=== PATIENT | male | born 1990 | race Caucasian/White ===

== ENCOUNTER 2016-06-16 21:43 | Emergency (ER) | payer MEDICAID ==
[~2016-06-16] VITALS: Ht 165.1 cm; Wt 88.0 kg
[2016-06-16 21:49] VITALS: BP 161/85
--- NOTE | 2016-06-16 21:56 | NUR ---
PATIENT AMBULATED TO ER BED 05
[2016-06-16] MEDS ORDERED: IBUPROFEN 800 MG TAB PO ONE (22:30)
[2016-06-16] MEDS ORDERED: SULFAMETH/TRIMETH DS 800/160MG 1 TAB PO ONE (22:30)
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
[2016-06-16 23:09] VITALS: BP 140/79
--- NOTE | 2016-06-16 23:09 | NUR ---
Patient discharged with v/s stable. Written and verbal after care instructions given and explained. Patient alert, oriented and verbalized understanding of instructions. Ambulatory with steady gait. All questions addressed prior to discharge. ID band removed. Patient advised to follow up with PMD. Rx of motrin and bactrim given. Patient educated on indication of medication including possible reaction and side effects. Opportunity to ask questions provided and answered.
== END 2016-06-16 23:09 | disposition home or self-care (01) ==
LOC: MED 21:43
DX: S93.601A Unspecified sprain of right foot, initial encounter (principal); L03.115 Cellulitis of right lower limb; R03.0 Elevated blood-pressure reading, without diagnosis of hypertension; W31.9XXA Contact with unspecified machinery, initial encounter; Y93.89 Activity, other specified; Y92.89 Other specified places as the place of occurrence of the external cause; Y99.8 Other external cause status

== ENCOUNTER 2021-04-16 23:47 | Emergency (ER) | payer SELFPAY ==
[~2021-04-16] VITALS: Ht 167.6 cm; Wt 83.9 kg
[2021-04-16 23:54] VITALS: BP 163/100
--- NOTE | 2021-04-17 | NUR ---
TO LOBBY A/W BED AMBULATORY
--- NOTE | 2021-04-17 01:08 | NUR ---
PT AMBULATED TO BED 10
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
[2021-04-17] MEDS ORDERED: IBUP-2213 PO (01:32)
--- NOTE | 2021-04-17 01:40 | NUR ---
Patient discharged with v/s stable. Written and verbal after care instructions given and explained. Patient alert, oriented and verbalized understanding of instructions. Ambulatory with steady gait. All questions addressed prior to discharge. ID band removed. Patient advised to follow up with PMD. Rx of IBUPROFEN given.Opportunity to ask questions provided and answered.
[2021-04-17 01:45] VITALS: BP 152/83
--- NOTE | 2021-04-17 03:19 | NUR ---
The patient's care was reviewed and supervised by MILY BROWNE RN.
== END 2021-04-17 01:40 | disposition home or self-care (01) ==
LOC: MED 23:47
DX: S61.212A Laceration without foreign body of right middle finger without damage to nail, initial encounter (principal); W26.0XXA Contact with knife, initial encounter; Y93.89 Activity, other specified; Y92.89 Other specified places as the place of occurrence of the external cause; Y99.8 Other external cause status
CPT/HCPCS: 12001; 99283